=== PATIENT | female | born 1970 | race Caucasian/White ===

== ENCOUNTER 2017-11-13 14:21 | Inpatient (IN) | payer OTHER ==
[~2017-11-13] VITALS: Ht 167.6 cm; Wt 73.3 kg
[2017-11-13 14:24] VITALS: BP 136/70; PULSE 100; RESP 18; TEMP 98.6; O2SAT 96
--- NOTE | 2017-11-13 14:46 | PD ---
HPI Chief Complaint: Respiratory Symptoms Time Seen by Provider: 14:34 Travel History International Travel<30 days: No Contact w/Intl Traveler<30days: No Traveled to known affect area: No History of Present Illness HPI 47yo F with PMH of breast CA s/p radiation therapy ending in September and now on tamoxifen here with c/o persistent fever and worsening sob. Pt said she had a CXR last week that showed pneumonia and was place on azithromycin starting 3 days ago by her primary care physician. Feels more sob with lying down and walking. Denies any chest pain but does have right breast pain. Denies any n/v , abdominal pain, focal weakness or numbness. Oncologist is Dr. Rojas. [facility] Past Medical History ?: Not Social History Tobacco Use: No Allergies-Medications (Allergen,Severity, Reaction): Coded Allergies: apple (Unverified Allergy, Severe, 11/13/17) JUICE lidocaine (Unverified Allergy, Severe, 11/13/17) NKA Reported Meds & Prescriptions Reported Meds & Active Scripts Active Reported Tamoxifen (Tamoxifen Citrate) 10 Mg Tab 10 Mg PO DAILY Review of Systems Except as stated in HPI: all other systems reviewed are Neg Physical Exam Narrative GENERAL: 47yo F in mild distress. SKIN: Focused skin assessment warm/dry. HEAD: Atraumatic. Normocephalic. EYES: Pupils equal and round. No scleral icterus. No injection or drainage. ENT: No nasal bleeding or discharge. Mucous membranes pink and moist. NECK: Trachea midline. No JVD. CARDIOVASCULAR: Regular rate and rhythm. No murmur appreciated. RESPIRATORY: No accessory muscle use. Coarse breath sounds in right lower lung. GASTROINTESTINAL: Abdomen soft, non-tender, nondistended. MUSCULOSKELETAL: No obvious deformities. No clubbing. No cyanosis. No edema. NEUROLOGICAL: Awake and alert. No obvious cranial nerve deficits. Motor grossly within normal limits. Normal speech. PSYCHIATRIC: Appropriate mood and affect; insight and judgment normal. Data Data Last Documented VS Vital Signs Date Time Temp Pulse Resp B/P (MAP) Pulse Ox O2 Delivery O2 Flow Rate FiO2 11/13/17 16:47 95 18 123/65 (84) 95 Room Air 11/13/17 14:24 98.6 Orders Orders Complete Blood Count With Diff (11/13/17 14:43) Basic Metabolic Panel (Bmp) (11/13/17 14:43) B-Type Natriuretic Peptide (11/13/17 14:43) Act Partial Throm Time (Ptt) (11/13/17 14:43) Prothrombin Time / Inr (Pt) (11/13/17 14:43) Magnesium (Mg) (11/13/17 14:43) Troponin I (11/13/17 14:43) Influenzae A/B Antigen (11/13/17 14:43) Blood Culture (11/13/17 14:43) Electrocardiogram (11/13/17 14:43) Chest, Single Ap (11/13/17 14:43) Lactic Acid Sepsis Protocol (11/13/17 14:43) Levofloxacin 750 Mg Premix Inj (Levaquin (11/13/17 16:15) Admit Order (Ed Use Only) (11/13/17 16:32) Sodium Chloride 0.9% Flush (Ns Flush) (11/13/17 16:45) Sodium Chloride 0.9% Flush (Ns Flush) (11/13/17 21:00) Ondansetron Inj (Zofran Inj) (11/13/17 16:45) Admit To Inpatient (11/13/17 ) Code Status (11/13/17 16:32) Vital Signs (Adult) Q4H (11/13/17 16:32) Activity Oob With Assistance PRN (11/13/17 16:32) Notify Parameters (11/13/17 16:32) Intake + Output Q8H (11/13/17 16:32) ^ Smoking Cessation Counseling (11/13/17 16:32) Diet Regular Basic (11/13/17 Dinner) Complete Blood Count With Diff (11/14/17 06:00) Basic Metabolic Panel (Bmp) (11/14/17 06:00) Chest, Pa & Lat (11/14/17 08:00) Consult Pt Eval & Treat (11/13/17 16:32) Scd Bilateral/Knee High ALEXANDRA.BID (11/13/17 16:32) Inpatient Certification (11/13/17 ) Piperacil-Tazo 3.375 Gm Premix (Zosyn 3. (11/13/17 17:00) Albuterol-Ipratropium Neb (Duoneb Neb) (11/13/17 20:00) Albuterol-Ipratropium Neb (Duoneb Neb) (11/13/17 16:45) Tamoxifen (Nolvadex) (11/14/17 09:00) Labs Laboratory Tests Test 11/13/17 14:50 White Blood Count 12.2 TH/MM3 Red Blood Count 3.32 MIL/MM3 Hemoglobin 10.5 GM/DL Hematocrit 30.9 % Mean Corpuscular Volume 93.3 FL Mean Corpuscular Hemoglobin 31.6 PG Mean Corpuscular Hemoglobin Concent 33.9 % Red Cell Distribution Width 13.2 % Platelet Count 574 TH/MM3 Mean Platelet Volume 7.2 FL Neutrophils (%) (Auto) 83.3 % Lymphocytes (%) (Auto) 5.8 % Monocytes (%) (Auto) 8.4 % Eosinophils (%) (Auto) 2.2 % Basophils (%) (Auto) 0.3 % Neutrophils # (Auto) 10.1 TH/MM3 Lymphocytes # (Auto) 0.7 TH/MM3 Monocytes # (Auto) 1.0 TH/MM3 Eosinophils # (Auto) 0.3 TH/MM3 Basophils # (Auto) 0.0 TH/MM3 CBC Comment DIFF FINAL Differential Comment Prothrombin Time 10.9 SEC Prothromb Time International Ratio 1.1 RATIO Activated Partial Thromboplast Time 26.2 SEC Blood Urea Nitrogen 6 MG/DL Creatinine 0.60 MG/DL Random Glucose 87 MG/DL Calcium Level 8.6 MG/DL Magnesium Level 2.2 MG/DL Sodium Level 136 MEQ/L Potassium Level 3.7 MEQ/L Chloride Level 97 MEQ/L Carbon Dioxide Level 29.6 MEQ/L Anion Gap 9 MEQ/L Estimat Glomerular Filtration Rate 107 ML/MIN Lactic Acid Level 0.8 mmol/L Troponin I LESS THAN 0.02 NG/ML B-Type Natriuretic Peptide 68 PG/ML MDM Medical Decision Making Medical Screen Exam Complete: Yes Emergency Medical Condition: Yes Interpretation(s) EKG: NSR 90bpm. Normal axis. No ST segment elevation or depression. Differential Diagnosis Pneumonia vs. pleural effusion vs. malignancy Narrative Course 47yo F with breast cancer on tamoxifen here with fever, cough, sob that has been worsening in the last few days. Pt has been on azithromycin but states it is getting worst. Physical exam showed decreased breath sounds and coarse breath sound in right lower lung. Labs reviewed, WBC 12.2. H/H low at 10.5/ 30.9. However, her previous H/H was from 2004. Elevated platelet count. Lactic acid normal. BNP normal. Troponin negative. BMP unremarkable. CXR showed right lower lobe pneumonia. I have reviewed the CXR myself and felt that there is a large infiltrate that covers right lower and middle lobe and since pt is worsening with outpatient treatment, will admit pt for IV antibiotics. Pt given levofloxacin IV. Discussed with Dr. Silvestre and accepted to his service. Diagnosis Primary Impression: Pneumonia Qualified Codes: J18.1 - Lobar pneumonia, unspecified organism Admitting Information Admitting Physician Requests: Leida Montoya DO November 13, 2017 14:46
[2017-11-13 15:08] LABS: AUTOMATED NEUTROPHIL # 10.1 TH/MM3 (1.8-7.7); BASOPHIL % 0.3 % (0.0-2.0); EOSINOPHIL # 0.3 TH/MM3 (0-0.4); EOSINOPHIL % 2.2 % (0.0-4.0); HEMATOCRIT 30.9 % (35.0-46.0); HEMOGLOBIN 10.5 GM/DL (11.6-15.3); LYMPH % 5.8 % (9.0-44.0); LYMPHOCYTE # 0.7 TH/MM3 (1.0-4.8); MEAN CELL VOLUME 93.3 FL (80.0-100.0); MEAN CORPUSCULAR HEMOGLOBIN 31.6 PG (27.0-34.0); MEAN CORPUSCULAR HGB CONC 33.9 % (32.0-36.0); MEAN PLATELET VOLUME 7.2 FL (7.0-11.0); MONO % 8.4 % (0.0-8.0); NEUT % 83.3 % (16.0-70.0); PLATELET COUNT 574 TH/MM3 (150-450); RED BLOOD COUNT 3.32 MIL/MM3 (4.00-5.30); RED CELL DISTRIBUTION WIDTH 13.2 % (11.6-17.2); WHITE BLOOD COUNT 12.2 TH/MM3 (4.0-11.0)
[2017-11-13 15:17] LABS: INTERNATIONAL NORMALIZED RATIO 1.1 RATIO; PROTHROMBIN TIME - PATIENT 10.9 SEC (9.8-11.6)
[2017-11-13 15:20] VITALS: BP 126/67; PULSE 95; RESP 18; O2SAT 95
[2017-11-13] MEDS ORDERED: TAMO10TA6 PO (15:20)
--- NOTE | 2017-11-13 15:24 | RADRPT ---
EXAM DATE: 11/13/2017 3:16 PM EDT AGE/SEX: 47 years / Female INDICATIONS: SOB. Fever one week. CLINICAL DATA: This is the patient's initial encounter. Patient reports that signs and symptoms have been present for 1 week and indicates a pain score of 0/10. MEDICAL/SURGICAL HISTORY: None. None. COMPARISON: None. FINDINGS: A single AP view of the chest demonstrates a dense consolidation involving the right midlung and righ t lower lobe. This obscures the hemidiaphragm. Left lung is clear. No discernible effusions. Heart is normal in size. Bony structures are unremarkable. CONCLUSION: Right lower lobe pneumonia. Electronically signed by: Serafin Polo MD 11/13/2017 3:23 PM EDT
[2017-11-13 15:26] LABS: BICARBONATE 29.6 MEQ/L (21.0-32.0); BLOOD UREA NITROGEN 6 MG/DL (7-18); CALCIUM 8.6 MG/DL (8.5-10.1); CHLORIDE 97 MEQ/L (98-107); GLOMERULAR FILTRATION RATE 107 ML/MIN (>89); GLUCOSE,RANDOM 87 MG/DL (74-106); MAGNESIUM 2.2 MG/DL (1.5-2.5); SODIUM (NA) 136 MEQ/L (136-145)
[2017-11-13 15:30] LABS: TROPONIN I LESS THAN 0.02 NG/ML (0.02-0.05)
[2017-11-13] MEDS ORDERED: LEVOFLOXACIN 750 MG PREMIX INJ 150 ML IV ONE (16:15)
[2017-11-13] MEDS ORDERED: SODIUM CHLORIDE 0.9% FLUSH 10 ML FLUSH IV FLUSH PRN (16:45)
[2017-11-13] MEDS ORDERED: ONDANSETRON HCL 4 MG/2 ML VIAL IV PUSH PRN (16:45)
[2017-11-13 16:47] VITALS: BP 123/65; PULSE 95; RESP 18; O2SAT 95
--- NOTE | 2017-11-13 16:49 | HHI.HP ---
HPI Service CP Hospitalists Primary Care Physician Non-Staff Admission Diagnosis Right lower pneumonia Chief Complaint: cough and SOB Travel History International Travel<30 Days: No Contact w/Intl Traveler <30 Da: No Traveled to Known Affected Are: No History of Present Illness This a 47yo female patient with PMH of breast CA s/p resection 04/2017 and radiation therapy ending in september now on tamoxifen. Pt reports that she had a CXR last week that showed pneumonia and was place on azithromycin which was starting 3 days ago by her primary care physician. Patient reports that she continues to have fevers 101 -102 with chills, SOB with minimal exertion and cough productive of yellow phlegm. Denies any chest pain but does have right breast pain. Patient denies any n/v, abdominal pain, focal weakness or numbness. Patient's radiation oncologist is Dr. Henao. CXR reveals right lower lobe pneumonia Review of Systems Constitutional: COMPLAINS OF: Fever, Chills Respiratory: COMPLAINS OF: Cough, Sputum production, Shortness of breath Past Family Social History Past Medical History breast CA s/p resection and radiation therapy ending in september now on tamoxifen Past Surgical History Resection right breast Ca 04/2017 cholecystectomy tubal ligation R shoulder orthoscopic surgery Reported Medications Tamoxifen (Tamoxifen Citrate) 10 Mg Tab 10 Mg PO DAILY Azithromycin started 3 days ago Allergies: Coded Allergies: apple (Unverified Allergy, Severe, 11/13/17) JUICE lidocaine (Unverified Allergy, Severe, 11/13/17) NKA Family History noncontributory Social History ETOH use: 2-3 beers per day denies tobacco use or illicit drug use Physical Exam Vital Signs Vital Signs Date Time Temp Pulse Resp B/P (MAP) Pulse Ox O2 Delivery O2 Flow Rate FiO2 11/13/17 16:47 95 18 123/65 (84) 95 Room Air 11/13/17 15:20 96 18 98 Room Air 11/13/17 15:20 95 18 126/67 (86) 95 Room Air 11/13/17 14:24 98.6 100 18 136/70 (92) 96 Physical Exam GENERAL: This is a well-nourished, well-developed patient, in no apparent distress. SKIN: No rashes, ecchymoses or lesions. Cool and dry. HEAD: Atraumatic. Normocephalic. No temporal or scalp tenderness. EYES: Extraocular motions intact. No scleral icterus. No injection or drainage. CARDIOVASCULAR: Regular rate and rhythm RESPIRATORY: left lung metcalf clear to auscultation. Right lung metcalf coarse rhonci with expiratory wheezes and crackles GASTROINTESTINAL: Abdomen soft, non-tender, nondistended. MUSCULOSKELETAL: Extremities without clubbing, cyanosis, or edema. No joint tenderness, effusion, or edema noted. No calf tenderness. Negative Homans sign bilaterally. NEUROLOGICAL: Awake and alert. Cranial nerves II through XII intact. Motor and sensory grossly within normal limits. Five out of 5 muscle strength in all muscle groups. Normal speech. Laboratory Laboratory Tests Test 11/13/17 14:50 White Blood Count 12.2 Red Blood Count 3.32 Hemoglobin 10.5 Hematocrit 30.9 Mean Corpuscular Volume 93.3 Mean Corpuscular Hemoglobin 31.6 Mean Corpuscular Hemoglobin Concent 33.9 Red Cell Distribution Width 13.2 Platelet Count 574 Mean Platelet Volume 7.2 Neutrophils (%) (Auto) 83.3 Lymphocytes (%) (Auto) 5.8 Monocytes (%) (Auto) 8.4 Eosinophils (%) (Auto) 2.2 Basophils (%) (Auto) 0.3 Neutrophils # (Auto) 10.1 Lymphocytes # (Auto) 0.7 Monocytes # (Auto) 1.0 Eosinophils # (Auto) 0.3 Basophils # (Auto) 0.0 CBC Comment DIFF FINAL Differential Comment Prothrombin Time 10.9 Prothromb Time International Ratio 1.1 Activated Partial Thromboplast Time 26.2 Blood Urea Nitrogen 6 Creatinine 0.60 Random Glucose 87 Calcium Level 8.6 Magnesium Level 2.2 Sodium Level 136 Potassium Level 3.7 Chloride Level 97 Carbon Dioxide Level 29.6 Anion Gap 9 Estimat Glomerular Filtration Rate 107 Lactic Acid Level 0.8 Troponin I LESS THAN 0.02 B-Type Natriuretic Peptide 68 Date/Time Source Procedure Growth Status 11/13/17 14:55 Blood Peripheral Aerobic Blood Culture Pending Received 11/13/17 14:55 Blood Peripheral Anaerobic Blood Culture Pending Received 11/13/17 15:16 Nasal Aspirate Influenza Types A,B Antigen (YVAN) - Final NEGATIVE FOR FLU A AND B ANTIGEN.... Complete Result Diagram: 11/13/17 1450 11/13/17 1450 Imaging Last Impressions Chest X-Ray 11/13/17 1443 Signed Impressions: CONCLUSION: Right lower lobe pneumonia. Caprini VTE Risk Assessment Caprini VTE Risk Assessment: No/Low Risk (score <= 1) Caprini Risk Assessment Model Point Value = 1 Point Value = 2 Point Value = 3 Point Value = 5 Age 41-60 Minor surgery BMI > 25 kg/m2 Swollen legs Varicose veins or History of unexplained or recurrent spontaneous Oral contraceptives or hormone replacement Sepsis (< 1 month) Serious lung disease, including pneumonia (< 1 month) Abnormal pulmonary function Acute myocardial infarction Congestive heart failure (< 1 month) History of inflammatory bowel disease Medical patient at bed rest Age 61-74 Arthroscopic surgery Major open surgery (> 45 min) Laparoscopic surgery (> 45 min) Malignancy Confined to bed (> 72 hours) Immobilizing plaster cast Central venous access Age >= 75 History of VTE Family history of VTE Factor V Leiden Prothrombin [id number] Lupus anticoagulant Anticardiolipin antibodies Elevated serum homocysteine Heparin-induced thrombocytopenia Other congenital or acquired thrombophilia Stroke (< 1 month) Elective arthroplasty Hip, pelvis, or leg fracture Acute spinal cord injury (< 1 month) Prophylaxis Regimen Total Risk Factor Score Risk Level Prophylaxis Regimen 0-1 Low Early ambulation 2 Moderate Order ONE of the following: *Sequential Compression Device (SCD) *Heparin 5000 units SQ BID 3-4 Higher Order ONE of the following medications: *Heparin 5000 units SQ TID *Enoxaparin/Lovenox 40 mg SQ daily (WT < 150 kg, CrCl > 30 mL/min) *Enoxaparin/Lovenox 30 mg SQ daily (WT < 150 kg, CrCl > 10-29 mL/min) *Enoxaparin/Lovenox 30 mg SQ BID (WT < 150 kg, CrCl > 30 mL/min) AND/OR *Sequential Compression Device (SCD) 5 or more Highest Order ONE of the following medications: *Heparin 5000 units SQ TID (Preferred with Epidurals) *Enoxaparin/Lovenox 40 mg SQ daily (WT < 150 kg, CrCl > 30 mL/min) *Enoxaparin/Lovenox 30 mg SQ daily (WT < 150 kg, CrCl > 10-29 mL/min) *Enoxaparin/Lovenox 30 mg SQ BID (WT < 150 kg, CrCl > 30 mL/min) AND *Sequential Compression Device (SCD) Assessment and Plan Problem List: (1) Pneumonia ICD Codes: J18.9 - Pneumonia, unspecified organism Status: Acute Plan: This a 47yo female patient with PMH of breast CA s/p resection 04/2017 and radiation therapy ending in september now on tamoxifen. Pt reports that she had a CXR last week that showed pneumonia and was place on azithromycin which was starting 3 days ago by her primary care physician. Patient reports that she continues to have fevers 101 -102 while chills, SOB with minimal exertion and cough productive of yellow phlegm. Denies any chest pain but does have right breast pain. Patient denies any n/v, abdominal pain, focal weakness or numbness. Patient's radiation oncologist is Dr. Henao. - CXR reveals right lower lobe pneumonia - started Zosyn - repeat CXR in AM - duonebs Q6H while awake and PRN DVT prophylaxis with SCDs (2) Breast CA ICD Codes: C50.919 - Malignant neoplasm of unspecified site of unspecified female breast Plan: This a 47yo female patient with PMH of breast CA s/p resection 04/2017 and radiation therapy ending in september now on tamoxifen. Patient's radiation oncologist is Dr. Henao. - continue patient's home tamoxifen Assessment and Plan Patient examined. Assessment and plan formulated with Roro Alejandro PA-C. I agree with the above. Physician Certification 2 Midnight Certification Type: Admission for Inpatient Services Order for Inpatient Services The services are ordered in accordance with Medicare regulations or non- Medicare payer requirements, as applicable. In the case of services not specified as inpatient-only, they are appropriately provided as inpatient services in accordance with the 2-midnight benchmark. Estimated LOS (days): 3 days is the estimated time the patient will need to remain in the hospital, assuming treatment plan goals are met and no additional complications. Post-Hospital Plan: Home Problem Qualifiers (1) Pneumonia: Qualified Codes: J18.1 - Lobar pneumonia, unspecified organism Roro Alejandro November 13, 2017 16:49 Abe Silvestre DO November 14, 2017 23:31
[2017-11-13] MEDS: PIPERACIL-TAZO 3.375 GM PREMIX 50 ML IV SCH ×2 (17:00→22:50)
[2017-11-13 20:09] VITALS: O2SAT 92
[2017-11-13] MEDS: RESP: ALBUTEROL 2.5 MG/IPRATROPIUM 0.5 MG NEB (SCH) NEB (20:09)
[2017-11-13 20:36] VITALS: BP 108/54; PULSE 96; RESP 18; TEMP 99.8; O2SAT 96
[2017-11-13] MEDS: SODIUM CHLORIDE 0.9% FLUSH 10 ML FLUSH IV FLUSH SCH (21:20)
[2017-11-14] VITALS (10 sets, daily range): BP systolic 98–121; BP diastolic 51–67; PULSE 85–98; RESP 18–21; TEMP 98.5–101.7; O2SAT 93–95
[2017-11-14] MEDS: PIPERACIL-TAZO 3.375 GM PREMIX 50 ML IV SCH ×4 (04:08→23:03)
[2017-11-14] MEDS: ACETAMINOPHEN 325 MG TAB PO PRN ×2 (04:09→14:22)
[2017-11-14 05:55] LABS: AUTOMATED NEUTROPHIL # 11.3 TH/MM3 (1.8-7.7); BASOPHIL # 0.1 TH/MM3 (0-0.2); BASOPHIL % 0.5 % (0.0-2.0); EOSINOPHIL # 0.3 TH/MM3 (0-0.4); EOSINOPHIL % 2.6 % (0.0-4.0); HEMATOCRIT 30.7 % (35.0-46.0); HEMOGLOBIN 10.3 GM/DL (11.6-15.3); LYMPH % 4.3 % (9.0-44.0); LYMPHOCYTE # 0.6 TH/MM3 (1.0-4.8); MEAN CELL VOLUME 93.3 FL (80.0-100.0); MEAN CORPUSCULAR HEMOGLOBIN 31.4 PG (27.0-34.0); MEAN CORPUSCULAR HGB CONC 33.7 % (32.0-36.0); MEAN PLATELET VOLUME 7.6 FL (7.0-11.0); MONO % 7.6 % (0.0-8.0); PLATELET COUNT 548 TH/MM3 (150-450); RED BLOOD COUNT 3.29 MIL/MM3 (4.00-5.30); RED CELL DISTRIBUTION WIDTH 13.7 % (11.6-17.2); WHITE BLOOD COUNT 13.3 TH/MM3 (4.0-11.0)
[2017-11-14 06:26] LABS: BICARBONATE 26.8 MEQ/L (21.0-32.0); CALCIUM 8.5 MG/DL (8.5-10.1); CREATININE 0.63 MG/DL (0.50-1.00)
--- NOTE | 2017-11-14 08:01 | RADRPT ---
EXAM DATE: 11/14/2017 7:55 AM EDT AGE/SEX: 47 years / Female INDICATIONS: Right lower lobe pneumonia. CLINICAL DATA: This is the patient's subsequent encounter. Patient reports that signs and symptoms h ave been present for 1 week and indicates a pain score of 0/10. MEDICAL/SURGICAL HISTORY: None. None. COMPARISON: [facility] [place]ST SINGLE AP, 11/13/2017. . FINDINGS: There continues to be diffuse interstitial and airspace infiltrate throughout most of the right lung. This is stable compared to the prior exam. The left lung remains clear and well aerated. No new pare nchymal infiltrates are demonstrated. The heart size is stable. The bony structures are stable. CONCLUSION: No significant change in the diffuse patchy infiltrate throughout the right lung compared to the prio r study. The findings would suggest right pneumonia. Electronically signed by: Vin Ruiz MD 11/14/2017 7:59 AM EDT
[2017-11-14] MEDS: RESP: ALBUTEROL 2.5 MG/IPRATROPIUM 0.5 MG NEB (SCH) NEB ×3 (08:51→20:25)
[2017-11-14] MEDS: TAMOXIFEN CITRATE 10 MG TAB PO SCH ×2 (08:55→12:00)
[2017-11-14] MEDS: SODIUM CHLORIDE 0.9% FLUSH 10 ML FLUSH IV FLUSH SCH ×2 (09:00→20:32)
--- NOTE | 2017-11-14 14:26 | EKG ---
Date Performed: 11/13/2017 Time Performed: 14:43:53 PTAGE: 47 years EKG: Sinus rhythm WITHIN NORMAL LIMITS BORDERLINE ECG NO PREVIOUS TRACING DOCTOR: Kael Martin Interpretating Date/Time 11/14/2017 14:26:04
--- NOTE | 2017-11-14 15:44 | HHI.PR ---
Subjective Remarks Patient reports feeling better today, less SOB Objective Vitals Vital Signs Date Time Temp Pulse Resp B/P (MAP) Pulse Ox O2 Delivery O2 Flow Rate FiO2 11/14/17 14:00 101.7 11/14/17 12:00 98.5 98 21 121/67 (85) 95 11/14/17 08:53 94 21 11/14/17 08:00 98.5 85 19 112/56 (74) 95 11/14/17 08:00 95 Room Air 11/14/17 04:44 18 11/14/17 04:00 101.0 96 20 109/57 (74) 93 11/14/17 00:39 100.8 95 18 115/57 (76) 95 11/13/17 23:36 Room Air 11/13/17 20:36 99.8 96 18 108/54 (72) 96 11/13/17 20:09 92 21 11/13/17 16:47 95 18 123/65 (84) 95 Room Air 11/14/17 11/14/17 11/15/17 15:00 23:00 07:00 Intake Total 170 ml Balance 170 ml Intake Oral 120 ml IV Total 50 ml Result Diagram: 11/14/17 0433 11/14/17 0433 Other Results Laboratory Tests Test 11/13/17 14:50 11/14/17 04:33 11/14/17 06:26 White Blood Count 12.2 TH/MM3 13.3 TH/MM3 Red Blood Count 3.32 MIL/MM3 3.29 MIL/MM3 Hemoglobin 10.5 GM/DL 10.3 GM/DL Hematocrit 30.9 % 30.7 % Mean Corpuscular Volume 93.3 FL 93.3 FL Mean Corpuscular Hemoglobin 31.6 PG 31.4 PG Mean Corpuscular Hemoglobin Concent 33.9 % 33.7 % Red Cell Distribution Width 13.2 % 13.7 % Platelet Count 574 TH/MM3 548 TH/MM3 Mean Platelet Volume 7.2 FL 7.6 FL Neutrophils (%) (Auto) 83.3 % 85.0 % Lymphocytes (%) (Auto) 5.8 % 4.3 % Monocytes (%) (Auto) 8.4 % 7.6 % Eosinophils (%) (Auto) 2.2 % 2.6 % Basophils (%) (Auto) 0.3 % 0.5 % Neutrophils # (Auto) 10.1 TH/MM3 11.3 TH/MM3 Lymphocytes # (Auto) 0.7 TH/MM3 0.6 TH/MM3 Monocytes # (Auto) 1.0 TH/MM3 1.0 TH/MM3 Eosinophils # (Auto) 0.3 TH/MM3 0.3 TH/MM3 Basophils # (Auto) 0.0 TH/MM3 0.1 TH/MM3 CBC Comment DIFF FINAL DIFF FINAL Differential Comment Prothrombin Time 10.9 SEC Prothromb Time International Ratio 1.1 RATIO Activated Partial Thromboplast Time 26.2 SEC Blood Urea Nitrogen 6 MG/DL 6 MG/DL Creatinine 0.60 MG/DL 0.63 MG/DL Random Glucose 87 MG/DL 91 MG/DL Calcium Level 8.6 MG/DL 8.5 MG/DL Magnesium Level 2.2 MG/DL Sodium Level 136 MEQ/L 136 MEQ/L Potassium Level 3.7 MEQ/L 3.9 MEQ/L Chloride Level 97 MEQ/L 99 MEQ/L Carbon Dioxide Level 29.6 MEQ/L 26.8 MEQ/L Anion Gap 9 MEQ/L 10 MEQ/L Estimat Glomerular Filtration Rate 107 ML/MIN 101 ML/MIN Lactic Acid Level 0.8 mmol/L 1.0 mmol/L Troponin I LESS THAN 0.02 NG/ML B-Type Natriuretic Peptide 68 PG/ML Imaging Last Impressions Chest X-Ray 11/13/17 1443 Signed Impressions: CONCLUSION: Right lower lobe pneumonia. Objective Remarks GENERAL: This is a well-nourished, well-developed patient, in no apparent distress. CARDIOVASCULAR: Regular rate and rhythm RESPIRATORY: diminished RLL with coarse crackles GASTROINTESTINAL: Abdomen soft, non-tender, nondistended. Normal active bowel sounds MUSCULOSKELETAL: Extremities without clubbing, cyanosis, or edema. NEURO: Alert & Oriented x4 to person, place, time, situation. Moves all ext x4 A/P Problem List: (1) Pneumonia ICD Codes: J18.9 - Pneumonia, unspecified organism Status: Acute Plan: This a 47yo female patient with PMH of breast CA s/p resection 04/2017 and radiation therapy ending in early September now on tamoxifen. Pt reports that she had a CXR last week that showed pneumonia and was place on azithromycin which was starting 3 days ago by her primary care physician. Patient reports that she continues to have fevers 101 -102 while chills, SOB with minimal exertion and cough productive of yellow phlegm. Denies any chest pain but does have right breast pain. Patient denies any n/v, abdominal pain, focal weakness or numbness. Patient's radiation oncologist is Dr. Henao. - CXR reveals right lower lobe pneumonia - continue Zosyn - repeat CXR (11/14) No significant change in the diffuse patchy infiltrate throughout the right lung compared to the prior study. The findings would suggest right pneumonia. - duonebs Q6H while awake and PRN - repeat CBC in AM -repeat CXR in AM - add IS DVT prophylaxis with SCDs (2) Breast CA ICD Codes: C50.919 - Malignant neoplasm of unspecified site of unspecified female breast Plan: This a 47yo female patient with PMH of breast CA s/p resection 04/2017 and radiation therapy ending in early September now on tamoxifen. Patient's radiation oncologist is Dr. Henao. - continue patient's home tamoxifen Assessment and Plan Patient examined. Assessment and plan formulated with Roro Alejandro PA-C. I agree with the above. Obtain Ct chest with contrast. continue IV zosyn Problem Qualifiers (1) Pneumonia: Qualified Codes: J18.1 - Lobar pneumonia, unspecified organism Roro Alejandro November 14, 2017 15:44 Abe Silvestre DO November 14, 2017 23:34
[2017-11-15] VITALS (8 sets, daily range): BP systolic 106–115; BP diastolic 54–57; PULSE 73–101; RESP 16–20; TEMP 97.7–100.6; O2SAT 93–95
[2017-11-15] MEDS: ACETAMINOPHEN 325 MG TAB PO PRN (00:36)
[2017-11-15] MEDS: PIPERACIL-TAZO 3.375 GM PREMIX 50 ML IV SCH ×4 (05:42→23:28)
[2017-11-15 06:01] LABS: AUTOMATED NEUTROPHIL # 11.6 TH/MM3 (1.8-7.7); BASOPHIL # 0.1 TH/MM3 (0-0.2); BASOPHIL % 0.6 % (0.0-2.0); EOSINOPHIL # 0.4 TH/MM3 (0-0.4); EOSINOPHIL % 3.1 % (0.0-4.0); HEMATOCRIT 31.4 % (35.0-46.0); HEMOGLOBIN 10.5 GM/DL (11.6-15.3); LYMPH % 6.1 % (9.0-44.0); LYMPHOCYTE # 0.8 TH/MM3 (1.0-4.8); MEAN CELL VOLUME 93.8 FL (80.0-100.0); MEAN CORPUSCULAR HEMOGLOBIN 31.4 PG (27.0-34.0); MEAN CORPUSCULAR HGB CONC 33.5 % (32.0-36.0); MEAN PLATELET VOLUME 7.7 FL (7.0-11.0); MONO % 5.6 % (0.0-8.0); MONOCYTE # 0.8 TH/MM3 (0-0.9); NEUT % 84.6 % (16.0-70.0); PLATELET COUNT 561 TH/MM3 (150-450); RED BLOOD COUNT 3.35 MIL/MM3 (4.00-5.30); RED CELL DISTRIBUTION WIDTH 13.4 % (11.6-17.2); WHITE BLOOD COUNT 13.7 TH/MM3 (4.0-11.0)
[2017-11-15] MEDS: RESP: ALBUTEROL 2.5 MG/IPRATROPIUM 0.5 MG NEB (SCH) NEB ×3 (08:00→20:57)
[2017-11-15] MEDS: TAMOXIFEN CITRATE 10 MG TAB PO SCH (10:16)
[2017-11-15] MEDS: SODIUM CHLORIDE 0.9% FLUSH 10 ML FLUSH IV FLUSH SCH ×2 (10:17→21:37)
--- NOTE | 2017-11-15 11:04 | HHI.PR ---
Subjective Remarks Patient reports feeling about the same as yesterday Continues to have shortness of breath with minimal exertion 24-hour T-max 100.6 Objective Vitals Vital Signs Date Time Temp Pulse Resp B/P (MAP) Pulse Ox O2 Delivery O2 Flow Rate FiO2 11/15/17 08:02 93 11/15/17 08:00 98.1 101 17 112/56 (74) 94 11/15/17 07:40 Room Air 11/15/17 04:00 97.7 73 16 107/57 (74) 95 11/15/17 00:00 100.6 99 20 114/57 (76) 94 11/14/17 20:25 94 21 11/14/17 20:00 98.5 86 18 109/56 (73) 94 11/14/17 20:00 94 Room Air 11/14/17 17:00 99.7 11/14/17 16:00 99.0 93 20 98/51 (67) 95 11/14/17 14:00 101.7 11/14/17 12:00 98.5 98 21 121/67 (85) 95 Result Diagram: 11/15/17 0530 11/14/17 0433 Imaging Last Impressions Chest X-Ray 11/13/17 1443 Signed Impressions: CONCLUSION: Right lower lobe pneumonia. Objective Remarks GENERAL: This is a well-nourished, well-developed patient, in no apparent distress. CARDIOVASCULAR: Regular rate and rhythm RESPIRATORY: diminished RLL with coarse crackles-more air movement noted than yesterday GASTROINTESTINAL: Abdomen soft, non-tender, nondistended. Normal active bowel sounds MUSCULOSKELETAL: Extremities without clubbing, cyanosis, or edema. NEURO: Alert & Oriented x4 to person, place, time, situation. Moves all ext x4 A/P Problem List: (1) Pneumonia ICD Codes: J18.9 - Pneumonia, unspecified organism Status: Acute Plan: Pneumonia This a 47yo female patient with PMH of breast CA s/p resection 04/2017 and radiation therapy ending in early September now on tamoxifen. Pt reports that she had a CXR last week that showed pneumonia and was place on azithromycin which was starting 3 days ago by her primary care physician. Patient reports that she continues to have fevers 101 -102 while chills, SOB with minimal exertion and cough productive of yellow phlegm. Denies any chest pain but does have right breast pain. Patient denies any n/v, abdominal pain, focal weakness or numbness. Patient's radiation oncologist is Dr. Henao. - CXR reveals right lower lobe pneumonia - continue Zosyn - repeat CXR (11/14) No significant change in the diffuse patchy infiltrate throughout the right lung compared to the prior study. The findings would suggest right pneumonia. - duonebs Q6H while awake and PRN - repeat CBC in AM -repeat CXR in AM - IS -CT chest/thorax with IV contrast pending Repeat CBC and BMP in a.m. DVT prophylaxis with SCDs Breast CA This a 47yo female patient with PMH of breast CA s/p resection 04/2017 and radiation therapy ending in early September now on tamoxifen. Patient's radiation oncologist is Dr. Henao. - continue patient's home tamoxifen (2) Breast CA ICD Codes: C50.919 - Malignant neoplasm of unspecified site of unspecified female breast Assessment and Plan Patient examined. Assessment and plan formulated with Roro Alejandro PA-C. I agree with the above. CAP. Breast CA. r/o underlying mets to lung. add atypical abx coverage add mucinex. cont nebs. ngtd on blood cx. inc spirometers. Problem Qualifiers (1) Pneumonia: Qualified Codes: J18.1 - Lobar pneumonia, unspecified organism Roro Alejandro November 15, 2017 11:04 Kael Alvarado MD November 15, 2017 21:32
[2017-11-15] MEDS ORDERED: LEVOFLOXACIN 500 MG PREMIX INJ 100 ML IV SCH (12:00)
[2017-11-15] MEDS ORDERED: guaiFENesin E.R. 600 MG TAB PO ONE (12:00)
[2017-11-15] MEDS: AZITHROMYCIN INJ 500 MG in SODIUM CHLOR 0.9% 250 ML INJ 250 ML IV SCH (12:33)
[2017-11-15] MEDS ORDERED: IOHEXOL 350 MG/ML 10 ML VIAL (for RAD DIAG) IVCONTRAST ONE (13:56)
--- NOTE | 2017-11-15 14:02 | RADRPT ---
EXAM DATE: 11/15/2017 1:55 PM EDT AGE/SEX: 47 years / Female INDICATIONS: Pneumonia. History of breast cancer, rule out metastasis. CLINICAL DATA: This is the patient's initial encounter. Patient reports that signs and symptoms have been present for 1 week and indicates a pain score of 0/10. MEDICAL/SURGICAL HISTORY: Carcinoma, breast. None. RADIATION DOSE: 9.30 CTDI (mGy) COMPARISON: No prior [facility] exams available for comparison. TECHNIQUE: Multiple contiguous axial images were obtained through the chest during bolus infusion of 75 ml Omnipaque 350 (iohexol) nonionic water-soluble contrast as a single exam dose. Images were obtained in suspended respiration using multiple row detector helical technique. Using automated exp osure control and adjustment of the mA and/or kV according to patient size, radiation dose was kept a s low as reasonably achievable to obtain optimal diagnostic quality images. FINDINGS: Lungs: Multi lobar consolidation throughout the right upper, right lower and to lesser degree right middle and lingula. Air bronchograms. A few scattered subcentimeter nodules in the right upper lobe m easuring 4 to 8 mm in size. Mediastinum: There is good visualization of the great vessels of the middle mediastinum. No evidenc e of mediastinal or hilar adenopathy/mass. Pleurae: No evidence of focal thickening or pleural effusion. Axillae: Unremarkable. Bony Structures: Unremarkable. Miscellaneous: The examination was extended to include the upper abdomen, and both adrenal glands ar e normal in size and configuration. CONCLUSION: 1. Multilobar consolidation likely multilobar pneumonia greater in the right lung. Treatment and fol low-up to resolution recommended. 2. A few scattered subcentimeter nodules of uncertain significance but could be part of the same inf ectious process. Follow-up CT chest in 3 months recommended for stability. Electronically signed by: Jesús Harrison MD 11/15/2017 2:01 PM EDT
[2017-11-15] MEDS: guaiFENesin E.R. 600 MG TAB PO SCH (21:36)
[2017-11-16] VITALS (8 sets, daily range): BP systolic 101–112; BP diastolic 54–62; PULSE 86–91; RESP 17–18; TEMP 97.3–100.4; O2SAT 93–100
[2017-11-16] MEDS: PIPERACIL-TAZO 3.375 GM PREMIX 50 ML IV SCH ×4 (05:29→22:31)
[2017-11-16 06:16] LABS: AUTOMATED NEUTROPHIL # 10.9 TH/MM3 (1.8-7.7); BASOPHIL # 0.1 TH/MM3 (0-0.2); BASOPHIL % 0.5 % (0.0-2.0); EOSINOPHIL # 0.3 TH/MM3 (0-0.4); EOSINOPHIL % 2.6 % (0.0-4.0); HEMATOCRIT 29.4 % (35.0-46.0); HEMOGLOBIN 9.9 GM/DL (11.6-15.3); LYMPHOCYTE # 0.5 TH/MM3 (1.0-4.8); MEAN CORPUSCULAR HEMOGLOBIN 31.4 PG (27.0-34.0); MEAN CORPUSCULAR HGB CONC 33.8 % (32.0-36.0); MEAN PLATELET VOLUME 7.6 FL (7.0-11.0); MONO % 6.9 % (0.0-8.0); MONOCYTE # 0.9 TH/MM3 (0-0.9); PLATELET COUNT 494 TH/MM3 (150-450); RED BLOOD COUNT 3.16 MIL/MM3 (4.00-5.30); RED CELL DISTRIBUTION WIDTH 13.9 % (11.6-17.2); WHITE BLOOD COUNT 12.7 TH/MM3 (4.0-11.0)
[2017-11-16] MEDS: RESP: ALBUTEROL 2.5 MG/IPRATROPIUM 0.5 MG NEB (SCH) NEB ×3 (08:27→20:16)
[2017-11-16] MEDS: TAMOXIFEN CITRATE 10 MG TAB PO SCH (08:34)
[2017-11-16] MEDS: guaiFENesin E.R. 600 MG TAB PO SCH ×2 (08:35→19:56)
[2017-11-16] MEDS: SODIUM CHLORIDE 0.9% FLUSH 10 ML FLUSH IV FLUSH SCH ×2 (08:37→19:56)
--- NOTE | 2017-11-16 10:14 | HHI.PR ---
Subjective Remarks pt with some sob with exertion. mucinex starting to break up congestion. Objective Vitals heart reg lung crackles. egophany RLL few course left lung bs abd s/nt ext no edema Vital Signs Date Time Temp Pulse Resp B/P (MAP) Pulse Ox O2 Delivery O2 Flow Rate FiO2 11/16/17 08:00 98.6 87 18 111/57 (75) 93 11/16/17 04:00 100.0 86 17 101/59 (73) 93 11/16/17 00:01 98.4 90 18 111/60 (77) 96 11/15/17 21:01 94 11/15/17 20:00 99.4 90 18 106/57 (73) 95 11/15/17 16:00 97.8 97 18 115/55 (75) 95 11/15/17 12:00 98.5 93 18 112/54 (73) 95 Result Diagram: 11/16/17 0501 11/14/17 0433 Imaging Last Impressions Chest X-Ray 11/13/17 1443 Signed Impressions: CONCLUSION: Right lower lobe pneumonia. A/P Problem List: (1) Pneumonia ICD Codes: J18.9 - Pneumonia, unspecified organism Status: Acute Plan: Pneumonia This a 47yo female patient with PMH of breast CA s/p resection 04/2017 and radiation therapy ending in early September now on tamoxifen. Pt reports that she had a CXR last week that showed pneumonia and was place on azithromycin which was starting 3 days ago by her primary care physician. Patient reports that she continues to have fevers 101 -102 while chills, SOB with minimal exertion and cough productive of yellow phlegm. Denies any chest pain but does have right breast pain. Patient denies any n/v, abdominal pain, focal weakness or numbness. Patient's radiation oncologist is Dr. Henao. - CXR reveals right lower lobe pneumonia - CT chest 11/15: 1. Multilobar consolidation likely multilobar pneumonia greater in the right lung. Treatment and follow-up to resolution recommended. 2. A few scattered subcentimeter nodules of uncertain significance but could be part of the same infectious process. Follow-up CT chest in 3 months recommended for stability. _ Pt is on zosyn and azithromycin. will likely d/c home on levaquin -- continue nebs and add mucomyst....gs/cx sputum if productive -- increase ambulation -- cont incentive spirometer -- She will need repeat chest imaging in next 3months. I discussed with pt/ -- We will establish her with a Physician Support Coordinator. She was scheduled to see Dr Caldwell. DVT prophylaxis with SCDs Breast CA This a 47yo female patient with PMH of breast CA s/p resection 04/2017 and radiation therapy ending in early September now on tamoxifen. Patient's radiation oncologist is Dr. Henao. - continue patient's home tamoxifen (2) Breast CA ICD Codes: C50.919 - Malignant neoplasm of unspecified site of unspecified female breast Problem Qualifiers (1) Pneumonia: Qualified Codes: J18.1 - Lobar pneumonia, unspecified organism Kael Alvarado MD November 16, 2017 10:14
[2017-11-16] MEDS: AZITHROMYCIN INJ 500 MG in SODIUM CHLOR 0.9% 250 ML INJ 250 ML IV SCH (12:23)
[2017-11-16] MEDS: RESP: ACETYLCYSTEINE 20% 30 ML NEB NEB SCH ×2 (13:09→20:16)
[2017-11-16] MEDS: ACETAMINOPHEN 325 MG TAB PO PRN (13:21)
--- NOTE | 2017-11-16 19:59 | MB ---
cc: Joss Caldwell MD, Arjun D MD DATE: 11/16/2017 REQUESTING PHYSICIAN: Dr. Alvarado REASON FOR CONSULTATION: Evaluation for pneumonia. HISTORY OF PRESENT ILLNESS: Ms. Zamora is a pleasant 47-year-old female with history of CA of the breast. She had a lumpectomy done and then she received 36 radiation treatments, now she is on tamoxifen. The patient started having fever about 2 weeks ago. She took some Tylenol, did not get better, [facility] and was started on Z-Sharath. She continued to have fever and went back [facility] and was told that she had pneumonia. She was given another antibiotic, did not get better. Because of continued fever, she came to the hospital. She had a CT scan of the chest done, which shows multilobar consolidation, likely multilobar pneumonia in the right lung, a few scattered subcentimeter nodules of uncertain significance. LABORATORY DATA: Her CBC showed WBC count 12.7, hemoglobin 9.9, hematocrit 29.4, MCV 93, platelet count 494. Sodium 136, potassium 3.9, chloride 99, CO2 of 26, BUN 6, creatinine 0.63. INR 1.1. Her blood cultures so far are negative. Influenza antigen is negative. Legionella and pneumococcal antigen are negative. PAST MEDICAL HISTORY: Significant for history of breast cancer status post lumpectomy, radiation treatment. She is on tamoxifen. CURRENT MEDICATIONS: 1. Mucomyst nebulizer treatment, 2. Mucinex 3. Zithromax 500 mg a day. 4. Tamoxifen 10 mg a day. 5. Zosyn q. 6 hrs 6. Albuterol and Atrovent nebulizer treatment. ALLERGIES: ALLERGIC TO SULFA AND LIDOCAINE. SOCIAL HISTORY: She is recently . 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 No history of any smoking, drinks socially. No drug abuse. FAMILY HISTORY: She has 3 daughters; has 3 brothers and 2 sisters, 1 brother has depression problem. REVIEW OF SYSTEMS:. Normally she is healthy. No weight loss, no DVT or pulmonary embolism. No seizure or stroke. PHYSICAL EXAMINATION: GENERAL: Well-built, well-nourished female not in acute distress. VITAL SIGNS: Blood pressure 112/57, heart rate 91, respirations 18, temperature 97.4. HEENT: Pupils are equal and reactive to light. Oral mucosa and nasal mucosa normal. NECK: Supple. JVP not raised. CHEST: Equal bilaterally. She has bronchial breath sounds in the right lung. CARDIOVASCULAR: S1, S2 normal. ABDOMEN: Benign. EXTREMITIES: No edema. IMPRESSION: 1. Multilobar pneumonia. Clinically, she is responding to treatment. 2. Carcinoma of the breast. 3. Mild leukocytosis. PLAN: We will maintain on antibiotics, Zosyn and Zithromax. Monitor her cultures. Encourage her to use Acapella to see if she can produce any sputum. She will need a repeat CT scan of the chest in 3-4 weeks to document complete clearing of the lung infiltrate. Further recommendations will depend on the course in the hospital. Thank you, Dr. Alvarado, for this consult. MD ISRAEL Dawkins//shahram , 07:14 PM , 07:36 PM JA
[2017-11-17] VITALS (7 sets, daily range): BP systolic 105–112; BP diastolic 55–62; PULSE 86–99; RESP 17–18; TEMP 98.5–99.4; O2SAT 92–97
[2017-11-17] MEDS: PIPERACIL-TAZO 3.375 GM PREMIX 50 ML IV SCH ×4 (04:40→22:12)
[2017-11-17] MEDS ORDERED: diphenhydrAMINE HCL 2%/ZINC ACETATE 0.1% CREAM 30 APPLIC/30 GM TUBE TOPICAL PRN (05:15)
[2017-11-17] MEDS: RESP: ALBUTEROL 2.5 MG/IPRATROPIUM 0.5 MG NEB (SCH) NEB ×3 (07:56→19:20)
[2017-11-17] MEDS: RESP: ACETYLCYSTEINE 20% 30 ML NEB NEB SCH ×3 (07:57→19:20)
[2017-11-17] MEDS: TAMOXIFEN CITRATE 10 MG TAB PO SCH (08:27)
[2017-11-17] MEDS: guaiFENesin E.R. 600 MG TAB PO SCH ×2 (08:27→19:44)
[2017-11-17] MEDS: SODIUM CHLORIDE 0.9% FLUSH 10 ML FLUSH IV FLUSH SCH ×2 (08:29→19:45)
--- NOTE | 2017-11-17 10:59 | PD.PN.STU ---
Subjective Remarks Ms. Zamora is feeling better today. Her temp was 99 this am. She feels that the mucinex nebulizer is improving her breathing. Yesterday she walked around the hallways and felt short of breath. She plans to walk today as well. Last night she developed an itchy rash behind her left knee and on her med-upper back. She has been using topical Benadryl to help with the itching. Objective Vitals Vital Signs Date Time Temp Pulse Resp B/P (MAP) Pulse Ox O2 Delivery O2 Flow Rate FiO2 11/17/17 08:44 Room Air 11/17/17 08:00 99.1 94 17 111/56 (74) 94 11/17/17 04:10 99.0 91 18 109/57 (74) 92 11/17/17 00:21 98.8 86 18 105/59 (74) 95 11/16/17 20:21 100 11/16/17 19:50 99.0 86 18 109/62 (78) 97 11/16/17 16:00 97.3 91 18 112/57 (75) 97 11/16/17 13:21 100.4 11/16/17 12:00 98.7 88 18 109/54 (72) 94 I/O 11/16/17 11/16/17 11/16/17 11/17/17 11/17/17 11/17/17 07:00 15:00 23:00 07:00 15:00 23:00 Intake Total 700 ml 420 ml Balance 700 ml 420 ml Intake Oral 600 ml 420 ml IV Total 100 ml # Voids 2 6 3 # Bowel Movements 2 2 Result Diagram: 11/16/17 0501 11/14/17 0433 Objective Remarks NAD Lung - clear equal breath sounds. No wheezing or rhonchi. No use of accessory muscles. Skin - macular rash behind left knee. One small bump under left scapula that is red mostly likely from itching A/P Assessment and Plan 1. Multilobar pneumonia Responding to [place] Pending sputum cultures Continue breathing treatments, nebulized Mucinex, and incentive spirometry Switch to PO Levaquin Tylenol PRN for fevers Seen by pulm, will f/u in 3-[address] Possible D/C today or tomorrow 2. Carcinoma of the breast. Larissa Banegas November 17, 2017 10:59
[2017-11-17] MEDS: AZITHROMYCIN INJ 500 MG in SODIUM CHLOR 0.9% 250 ML INJ 250 ML IV SCH (11:56)
--- NOTE | 2017-11-17 14:59 | HHI.PR ---
Subjective Remarks doing better Objective Vitals heart reg lung few crackles right base abd s/nt ext no edema Vital Signs Date Time Temp Pulse Resp B/P (MAP) Pulse Ox O2 Delivery O2 Flow Rate FiO2 11/17/17 11:13 Room Air 11/17/17 11:07 99.4 94 18 108/62 (77) 97 11/17/17 08:44 Room Air 11/17/17 08:00 99.1 94 17 111/56 (74) 94 11/17/17 04:10 99.0 91 18 109/57 (74) 92 11/17/17 00:21 98.8 86 18 105/59 (74) 95 11/16/17 20:21 100 11/16/17 19:50 99.0 86 18 109/62 (78) 97 11/16/17 16:00 97.3 91 18 112/57 (75) 97 Result Diagram: 11/16/17 0501 11/14/17 0433 Imaging Last Impressions Chest X-Ray 11/13/17 1443 Signed Impressions: CONCLUSION: Right lower lobe pneumonia. A/P Problem List: (1) Pneumonia ICD Codes: J18.9 - Pneumonia, unspecified organism Status: Acute Plan: Pneumonia This a 47yo female patient with PMH of breast CA s/p resection 04/2017 and radiation therapy ending in early September now on tamoxifen. Pt reports that she had a CXR last week that showed pneumonia and was place on azithromycin which was starting 3 days ago by her primary care physician. Patient reports that she continues to have fevers 101 -102 while chills, SOB with minimal exertion and cough productive of yellow phlegm. Denies any chest pain but does have right breast pain. Patient denies any n/v, abdominal pain, focal weakness or numbness. Patient's radiation oncologist is Dr. Henao. - CXR reveals right lower lobe pneumonia - CT chest 11/15: 1. Multilobar consolidation likely multilobar pneumonia greater in the right lung. Treatment and follow-up to resolution recommended. 2. A few scattered subcentimeter nodules of uncertain significance but could be part of the same infectious process. Follow-up CT chest in 3 months recommended for stability. _ Pt is on zosyn and azithromycin. will likely d/c home on levaquin -- continue nebs and add mucomyst....gs/cx sputum -- increase ambulation -- cont incentive spirometer -- She will need repeat chest imaging in next 3months. I discussed with pt/ -- We will establish her with a Clinical Specialist Vascular. She was scheduled to see Dr Caldwell. plan for d/c tomorrow on po abx and close f/u DVT prophylaxis with SCDs Breast CA This a 47yo female patient with PMH of breast CA s/p resection 04/2017 and radiation therapy ending in early September now on tamoxifen. Patient's radiation oncologist is Dr. Henao. - continue patient's home tamoxifen (2) Breast CA ICD Codes: C50.919 - Malignant neoplasm of unspecified site of unspecified female breast Problem Qualifiers (1) Pneumonia: Qualified Codes: J18.1 - Lobar pneumonia, unspecified organism Kael Alvarado MD November 17, 2017 14:59
--- NOTE | 2017-11-17 20:30 | HHI.PR ---
Subjective Remarks 47 YOWF with Bilat pn, ca breast Feels better No Fever Minimal sp No CP No SOB Objective Vital Signs Vital Signs Date Time Temp Pulse Resp B/P (MAP) Pulse Ox O2 Delivery O2 Flow Rate FiO2 11/17/17 19:20 94 21 11/17/17 16:30 99.0 90 18 108/58 (75) 96 11/17/17 16:00 Room Air 11/17/17 11:13 Room Air 11/17/17 11:07 99.4 94 18 108/62 (77) 97 11/17/17 08:44 Room Air 11/17/17 08:00 99.1 94 17 111/56 (74) 94 11/17/17 04:10 99.0 91 18 109/57 (74) 92 11/17/17 00:21 98.8 86 18 105/59 (74) 95 I/O 11/16/17 11/16/17 11/16/17 11/17/17 11/17/17 11/17/17 07:00 15:00 23:00 07:00 15:00 23:00 Intake Total 700 ml 420 ml 300 ml 2440 ml Balance 700 ml 420 ml 300 ml 2440 ml Intake Oral 600 ml 420 ml 2440 ml IV Total 100 ml 300 ml # Voids 2 6 3 8 # Bowel Movements 2 2 1 Result Diagram: 11/16/17 0501 11/14/17 0433 Objective Remarks GENERAL: WBWN WF,NAD SKIN: Warm and dry. HEAD: Normocephalic. EYES: No scleral icterus. No injection or drainage. NECK: Supple, trachea midline. No JVD or lymphadenopathy. CARDIOVASCULAR: Regular rate and rhythm without murmurs, gallops, or rubs. RESPIRATORY: Breath sounds equal bilaterally. No accessory muscle use. Bronchial BS right lung GASTROINTESTINAL: Abdomen soft, non-tender, nondistended. MUSCULOSKELETAL: No cyanosis, or edema. BACK: Nontender without obvious deformity. No CVA tenderness. A/P Assessment and Plan IMPRESSION: 1. Multilobar pneumonia. Clinically, she is responding to treatment. 2. Carcinoma of the breast. 3. Mild leukocytosis. PLAN: Cont Zosyn and zithro Check Cultures Acapella q 1hr Rpt CXR in Joss Wilson MD November 17, 2017 20:30
[2017-11-18] VITALS (9 sets, daily range): BP systolic 99–125; BP diastolic 55–62; PULSE 87–99; RESP 16–18; TEMP 97.9–99.1; O2SAT 90–99
[2017-11-18] MEDS: PIPERACIL-TAZO 3.375 GM PREMIX 50 ML IV SCH (05:13)
--- NOTE | 2017-11-18 07:02 | RADRPT ---
EXAM DATE: 11/18/2017 6:57 AM EDT AGE/SEX: 47 years / Female INDICATIONS: Cough, fever, short of breath, burning in middle of chest CLINICAL DATA: This is the patient's subsequent encounter. Patient reports that signs and symptoms h ave been present for 4 - 6 days and indicates a pain score of 0/10. MEDICAL/SURGICAL HISTORY: Carcinoma, breast. pneumonia . lumpectomy [place] [facility] [place]. . FINDINGS: There is worsening right lung consolidation with extensive right upper lung. Left lung infiltrate is present in mid lung field not present previously. CONCLUSION: Worsening right lung consolidation and interval development of left lung infiltrate. Electronically signed by: Jayashree Jimenez MD 11/18/2017 7:01 AM EDT
[2017-11-18] MEDS: TAMOXIFEN CITRATE 10 MG TAB PO SCH (07:41)
[2017-11-18] MEDS: SODIUM CHLORIDE 0.9% FLUSH 10 ML FLUSH IV FLUSH SCH ×2 (07:42→19:35)
[2017-11-18] MEDS: guaiFENesin E.R. 600 MG TAB PO SCH ×2 (07:42→19:35)
[2017-11-18] MEDS: RESP: ACETYLCYSTEINE 20% 30 ML NEB NEB SCH ×3 (08:00→20:45)
[2017-11-18] MEDS: RESP: ALBUTEROL 2.5 MG/IPRATROPIUM 0.5 MG NEB (PRN) NEB ×4 (08:36→20:45)
[2017-11-18] MEDS ORDERED: LEVOFLOXACIN 500 MG TAB PO ONE (11:00)
--- NOTE | 2017-11-18 12:58 | HHI.PR ---
Subjective Remarks hoping to go home Objective Vitals heart reg lung crackles right abd s/nt ext no edema Vital Signs Date Time Temp Pulse Resp B/P (MAP) Pulse Ox O2 Delivery O2 Flow Rate FiO2 11/18/17 11:36 Room Air 11/18/17 11:34 98.3 92 16 119/57 (77) 99 11/18/17 08:39 99 21 11/18/17 08:00 98.3 91 16 116/57 (76) 95 11/18/17 07:44 Room Air 11/18/17 04:15 99.1 93 18 108/60 (76) 90 11/18/17 00:20 98.2 87 18 99/59 (72) 95 11/17/17 19:26 98.5 99 18 112/55 (74) 93 11/17/17 19:20 94 21 11/17/17 16:30 99.0 90 18 108/58 (75) 96 11/17/17 16:00 Room Air Result Diagram: 11/16/17 0501 11/14/17 0433 Imaging Last Impressions Chest X-Ray 11/13/17 1443 Signed Impressions: CONCLUSION: Right lower lobe pneumonia. A/P Problem List: (1) Pneumonia ICD Codes: J18.9 - Pneumonia, unspecified organism Status: Acute Plan: Pneumonia This a 47yo female patient with PMH of breast CA s/p resection 04/2017 and radiation therapy ending in early September now on tamoxifen. Pt reports that she had a CXR last week that showed pneumonia and was place on azithromycin which was starting 3 days ago by her primary care physician. Patient reports that she continues to have fevers 101 -102 while chills, SOB with minimal exertion and cough productive of yellow phlegm. Denies any chest pain but does have right breast pain. Patient denies any n/v, abdominal pain, focal weakness or numbness. Patient's radiation oncologist is Dr. Henao. - CXR reveals right lower lobe pneumonia - CT chest 11/15: 1. Multilobar consolidation likely multilobar pneumonia greater in the right lung. Treatment and follow-up to resolution recommended. 2. A few scattered subcentimeter nodules of uncertain significance but could be part of the same infectious process. Follow-up CT chest in 3 months recommended for stability. _ Pt is on zosyn and azithromycin. will likely d/c home on levaquin -- continue nebs and add mucomyst....gs/cx sputum -- increase ambulation -- cont incentive spirometer -- She will need repeat chest imaging in next 3months. I discussed with pt/ -- We will establish her with a Glove Cutter. She was scheduled to see Dr Caldwell. convert to po abx today. cxr and consolidation noted. discuss with Dr Paulette Quesada when ok with dr Caldwell. DVT prophylaxis with SCDs Breast CA This a 47yo female patient with PMH of breast CA s/p resection 04/2017 and radiation therapy ending in early September now on tamoxifen. Patient's radiation oncologist is Dr. Henao. - continue patient's home tamoxifen (2) Breast CA ICD Codes: C50.919 - Malignant neoplasm of unspecified site of unspecified female breast Problem Qualifiers (1) Pneumonia: Qualified Codes: J18.1 - Lobar pneumonia, unspecified organism Kael Alvarado MD November 18, 2017 12:58
--- NOTE | 2017-11-18 19:56 | HHI.PR ---
Subjective Remarks 47 YOWF with Bilat pn, ca breast Feels better No Fever Minimal sp No CP No SOB CXR slight worsening of lung infilt walks 10 rounds in the hallway Objective Vital Signs Vital Signs Date Time Temp Pulse Resp B/P (MAP) Pulse Ox O2 Delivery O2 Flow Rate FiO2 11/18/17 16:21 94 Room Air 11/18/17 16:21 97.9 99 17 125/62 (83) 94 11/18/17 12:00 98.3 93 16 119/57 (77) 96 11/18/17 11:36 Room Air 11/18/17 11:34 98.3 92 16 119/57 (77) 99 11/18/17 08:39 99 21 11/18/17 08:00 98.3 91 16 116/57 (76) 95 11/18/17 07:44 Room Air 11/18/17 04:15 99.1 93 18 108/60 (76) 90 11/18/17 00:20 98.2 87 18 99/59 (72) 95 I/O 11/17/17 11/17/17 11/17/17 11/18/17 11/18/17 11/18/17 07:00 15:00 23:00 07:00 15:00 23:00 Intake Total 420 ml 300 ml 2490 ml 700 ml Balance 420 ml 300 ml 2490 ml 700 ml Intake Oral 420 ml 2440 ml 650 ml IV Total 300 ml 50 ml 50 ml # Voids 3 8 3 # Bowel Movements 2 1 Result Diagram: 11/16/17 0501 11/14/17 0433 Objective Remarks GENERAL: WBWN WF,NAD SKIN: Warm and dry. HEAD: Normocephalic. EYES: No scleral icterus. No injection or drainage. NECK: Supple, trachea midline. No JVD or lymphadenopathy. CARDIOVASCULAR: Regular rate and rhythm without murmurs, gallops, or rubs. RESPIRATORY: Breath sounds equal bilaterally. No accessory muscle use. Bronchial BS right lung GASTROINTESTINAL: Abdomen soft, non-tender, nondistended. MUSCULOSKELETAL: No cyanosis, or edema. BACK: Nontender without obvious deformity. No CVA tenderness. A/P Assessment and Plan IMPRESSION: 1. Multilobar pneumonia. Clinically, she is responding to treatment. 2. Carcinoma of the breast. 3. Mild leukocytosis. PLAN: PO Levaquin Acapella q 1hr Incentive spirometry Stable on RA DC plans for home Joss Caldwell MD November 18, 2017 19:56
[2017-11-19] VITALS: BP 93/53; PULSE 87; RESP 16; TEMP 98.3; O2SAT 95
[2017-11-19 04:00] VITALS: BP 107/55; PULSE 91; RESP 18; TEMP 99.3; O2SAT 94
[2017-11-19 04:40] VITALS: TEMP 99.7
[2017-11-19] MEDS: ACETAMINOPHEN 325 MG TAB PO PRN (05:04)
[2017-11-19] MEDS: RESP: ALBUTEROL 2.5 MG/IPRATROPIUM 0.5 MG NEB (PRN) NEB ×2 (05:14→09:23)
[2017-11-19 08:00] VITALS: BP 107/56; PULSE 93; RESP 18; TEMP 98.8; O2SAT 92
[2017-11-19] MEDS: guaiFENesin E.R. 600 MG TAB PO SCH (08:46)
[2017-11-19] MEDS: TAMOXIFEN CITRATE 10 MG TAB PO SCH (08:46)
[2017-11-19] MEDS: SODIUM CHLORIDE 0.9% FLUSH 10 ML FLUSH IV FLUSH SCH (08:47)
[2017-11-19] MEDS ORDERED: LEVOFLOXACIN 500 MG TAB PO SCH (09:00)
[2017-11-19] MEDS: RESP: ACETYLCYSTEINE 20% 30 ML NEB NEB SCH (09:23)
[2017-11-19 09:28] VITALS: O2SAT 99
[2017-11-19] MEDS ORDERED: guaiFENesin ER PO (10:28)
[2017-11-19] MEDS ORDERED: ALBU0.08 NEB ×3 (10:28→10:37)
[2017-11-19] MEDS ORDERED: IPRA0.02 NEB ×2 (10:28→10:34)
[2017-11-19] MEDS ORDERED: LEVA500T33 PO (10:28)
[2017-11-19] MEDS ORDERED: NEBULIZER/ADULT1 KIT (10:33)
--- NOTE | 2017-11-19 10:34 | HHI.DCPOC ---
Discharge Care Plan Diagnosis: (1) Pneumonia Goals to Promote Your Health * To prevent worsening of your condition and complications * To maintain your health at the optimal level Directions to Meet Your Goals Take your medications as prescribed Follow your dietary instruction Follow activity as directed Keep your appointments as scheduled Take your immunizations and boosters as scheduled If your symptoms worsen call your PCP, if no PCP go to Urgent Care Center or Emergency Room Smoking is Dangerous to Your Health. Avoid second hand smoke Call the 24-hour hour crisis hotline for domestic abuse at Kael Alvarado MD Nov 19, 2017 10:34
--- NOTE | 2017-11-19 10:42 | HHI.DS ---
Discharge Summary Admission Date November 13, 2017 at 16:54 Discharge Date: Nov 19, 2017 Admitting Diagnosis Right lower pneumonia (1) Pneumonia Diagnosis: Principal ICD Codes: J18.9 - Pneumonia, unspecified organism Status: Acute (2) Breast CA Diagnosis: Secondary ICD Codes: C50.919 - Malignant neoplasm of unspecified site of unspecified female breast Brief History This a 47yo female patient with PMH of breast CA s/p resection 04/2017 and radiation therapy ending in september now on tamoxifen. Pt reports that she had a CXR last week that showed pneumonia and was place on azithromycin which was starting 3 days ago by her primary care physician. Patient reports that she continues to have fevers 101 -102 with chills, SOB with minimal exertion and cough productive of yellow phlegm. Denies any chest pain but does have right breast pain. Patient denies any n/v, abdominal pain, focal weakness or numbness. Patient's radiation oncologist is Dr. Henao. CXR reveals right lower lobe pneumonia CBC/BMP: 11/16/17 0501 Hospital Course A/P Problem List: (1) Pneumonia This a 47yo female patient with PMH of breast CA s/p resection 04/2017 and radiation therapy ending in early September now on tamoxifen. Pt reports that she had a CXR last week that showed pneumonia and was place on azithromycin which was starting 3 days ago by her primary care physician. Patient reports that she continues to have fevers 101 -102 while chills, SOB with minimal exertion and cough productive of yellow phlegm. Denies any chest pain but does have right breast pain. Patient denies any n/v, abdominal pain, focal weakness or numbness. Patient's radiation oncologist is Dr. Henao. - CXR reveals right lower lobe pneumonia - CT chest 11/15: 1. Multilobar consolidation likely multilobar pneumonia greater in the right lung. Treatment and follow-up to resolution recommended. 2. A few scattered subcentimeter nodules of uncertain significance but could be part of the same infectious process. Follow-up CT chest in 3 months recommended for stability. _ Pt was on zosyn and azithromycin. -- continue nebs and add mucomyst.... -- increased ambulation -- cont incentive spirometer -- She will need repeat chest imaging in next 3months. I discussed with pt/ --establish her with a [facility]. She was scheduled to see Dr Caldwell. continue levaquin/nebs/mucinex at home. f/u next week with dr Caldwell. repeat outpt CT chest. Breast CA This a 47yo female patient with PMH of breast CA s/p resection 04/2017 and radiation therapy ending in early September now on tamoxifen. Patient's radiation oncologist is Dr. Henao. - continue patient's home tamoxifen (2) Breast CA ICD Codes: C50.919 - Malignant neoplasm of unspecified site of unspecified female breast Pt Condition on Discharge: Stable Discharge Disposition: Discharge Home Discharge Instructions DIET: Follow Instructions for: As Tolerated, No Restrictions Activities you can perform: Regular-No Restrictions Follow up Referrals: Pulmonology - 11/26/17 with Joss Caldwell MD New Medications: Albuterol Neb (Albuterol Neb) 2.5 Mg/3 Ml Neb 2.5 MG NEB Q6HR for pneumonia for 30 Days, NEBULE 0 Refills Ipratropium Neb (Ipratropium Neb) 0.5 Mg/2.5 Ml Amp 0.5 MG NEB Q6HR NEB for pneumonia for 30 Days, NEBULE 0 Refills Nebulizer/Adult Mask (Nebulizer/Adult Mask) 1 Kit Kit KIT .XX DIRECTED for Breathing Treatment, #1 0 Refills Levofloxacin (Levaquin) 500 Mg Tablet 500 MG PO DAILY for pneumonia, #8 TAB [guaiFENesin ER] () 600 MG TABCR 1200 MG PO BID for 7 Days Continued Medications: Tamoxifen (Tamoxifen) 10 Mg Tab 10 MG PO DAILY for Chemotherapy Management, #60 TAB 0 Refills Kael Alvarado MD Nov 19, 2017 10:42
--- NOTE | 2017-11-19 11:12 | HHI.PR ---
Subjective Remarks 47 YOWF with Bilat pn, ca breast Feels better No Fever Minimal sp No CP No SOB Ambulating in hallway Objective Vital Signs Vital Signs Date Time Temp Pulse Resp B/P (MAP) Pulse Ox O2 Delivery O2 Flow Rate FiO2 11/19/17 09:28 99 21 11/19/17 08:00 98.8 93 18 107/56 (73) 92 11/19/17 04:40 99.7 11/19/17 04:00 99.3 91 18 107/55 (72) 94 11/19/17 00:00 98.3 87 16 93/53 (66) 95 11/18/17 20:47 93 21 11/18/17 20:00 98.4 95 18 107/55 (72) 95 11/18/17 16:21 94 Room Air 11/18/17 16:21 97.9 99 17 125/62 (83) 94 11/18/17 12:00 98.3 93 16 119/57 (77) 96 11/18/17 11:36 Room Air 11/18/17 11:34 98.3 92 16 119/57 (77) 99 I/O 11/18/17 11/18/17 11/18/17 11/19/17 11/19/17 11/19/17 06:59 14:59 22:59 06:59 14:59 22:59 Intake Total 700 ml 960 ml Balance 700 ml 960 ml Intake Oral 650 ml 960 ml IV Total 50 ml # Voids 3 4 # Bowel Movements 0 Result Diagram: 11/16/17 0501 Objective Remarks GENERAL: WBWN WF,NAD SKIN: Warm and dry. HEAD: Normocephalic. EYES: No scleral icterus. No injection or drainage. NECK: Supple, trachea midline. No JVD or lymphadenopathy. CARDIOVASCULAR: Regular rate and rhythm without murmurs, gallops, or rubs. RESPIRATORY: Breath sounds equal bilaterally. No accessory muscle use. Bronchial BS right lung GASTROINTESTINAL: Abdomen soft, non-tender, nondistended. MUSCULOSKELETAL: No cyanosis, or edema. BACK: Nontender without obvious deformity. No CVA tenderness. A/P Assessment and Plan IMPRESSION: 1. Multilobar pneumonia. Clinically, she is responding to treatment. 2. Carcinoma of the breast. 3. Mild leukocytosis. PLAN: PO Levaquin Acapella q 1hr Incentive spirometry Stable on RA DC plans for home CXR on 11/25 FU in office 11/26 Call or come to ER if SOB or Fever Joss Caldwell MD Nov 19, 2017 11:12
== END 2017-11-19 12:59 | disposition home or self-care (01) | DRG 195 ==
LOC: NEPC 14:21 → NEDA 16:54 → N06A 17:21
PROVIDERS: ADMIT Hospitalist; ATTEND Hospitalist
DX: J18.9 Pneumonia, unspecified organism (principal); C50.919 Malignant neoplasm of unspecified site of unspecified female breast; D72.829 Elevated white blood cell count, unspecified; Z92.3 Personal history of irradiation
CPT/HCPCS: 71045; 71046; 71260; 80048; 83605; 83735; 83880; 84484; 85025; 85610; 85730; 87015; 87040; 87070; 87116; 87205; 87206; 87449; 87804; 93005; 94150; 94640; 94664; 94667; 94668; 99285; J0456; J1956; J2543; J7050; J7608; Q9967